=== PATIENT | male | born 1950 | race Caucasian/White ===

== ENCOUNTER 2020-01-04 09:08 | Day surgery (SDC) | payer MEDICARE ==
[~2020-01-04] VITALS: Ht 182.9 cm; Wt 102.4 kg
[~2020-01-04 09:08] MED LIST: ASPI81CH PO; ATOR20 PO; ERGO400 PO; METF500C PO; SITA100T2 PO; VITAMIN B125000 MC1 PO
--- NOTE | 2020-01-04 18:22 | NUR ---
POST OP: REPORT RECEIVED FROM NICKO, CHERRY DIPPER. PT TO ROOM AT ABOUT 1600. UPON ASSESSMENT PT IS A/O. DENIES PAIN, VSS. PT REPORTS NUMBNESS FROM WAIST DOWN, PT HAD SPINAL ANESTHESIA. UNABLE TO WIGGLE TOES, PULSES +2 AND CAP REFILL WNL. SURGICAL SITE WNL. ICE IN PLACE. PT ABLE TO TAKE IN PO, NO N/V. WILL CTM AND REPORT TO DONTRELL RN.
--- NOTE | 2020-01-04 22:30 | NUR ---
PT ATTEMPTED TO VOID IN THE BATHROOM IN THE URNAL JUST NOW. NO URINE OUTPUT YET. ENCOURAGED MORE PO FLUIDS AND HE HAS IV FLUIDS RUNNING. PT AMBULATED WELL TO THE BATHROOM AND BACK TO BED. HE WAS ABLE TO [employer] THE ROOM FOR A FEW MINUTES WITH NO ISSUES.
--- NOTE | 2020-01-05 03:24 | NUR ---
SHIFT SUMMARY: POD 1 RIGHT TOTAL KNEE PT IS ALERT AND ORIENTED X4 WHILE AWAKE. HE HAS BEEN TRYING TO SLEEP DURING THE SHIFT BUT IS EASILY AROUSABLE. VITAL SIGNS ARE WNL AND IS ON RA. PAIN IS MANAGED WITH TWO ИРИНА, TORADOL, AND TYLENOL. HE HAS BEEN AMBULATING WELL TO THE BATHROOM AND DOWN THE HALLS. HE IS A SBA WITH AMBULATION. PT WAS ON A SPINAL EPIDURAL FOR SURGERY BUT DENIES NUMBNESS OR TINGLING NOW. HE IS ON FLUIDS AND IS RECIEVING ABX. HE TOLERATES PO INTAKE. ENCOURAGING PO FLUID INTAKE TO INCREASE URINE OUTPUT. HE CALLS APPROPRIATELY AND CALL LIGHT IS WITHIN REACH. THE PLAN IS TO WORK WITH PT/OT TODAY AND MANAGE PAIN.
[2020-01-05 05:14] LABS: BASOPHILS ABSOLUTE AUTO 0.02 K/mm3 (0.00-0.23); BASOPHILS PERCENT AUTO 0 % (0-2); EOSINOPHILS PERCENT AUTO 0 % (0-6); Hematocrit 32.9 % (37.0-53.0); Hemoglobin 11.1 g/dL (13.5-17.5); IMMATURE GRAN ABSOLUTE AUTO 0.16 K/mm3 (0.00-0.10); IMMATURE GRAN PERCENT AUTO 1 % (0-1); LYMPHOCYTES ABSOLUTE AUTO 1.25 K/mm3 (0.84-5.20); LYMPHOCYTES PERCENT AUTO 8 % (21-46); MONOCYTES ABSOLUTE AUTO 1.29 K/mm3 (0.16-1.47); MONOCYTES PERCENT AUTO 8 % (4-13); Mean Corpuscular HGB 31.7 pg (26.0-34.0); Mean Corpuscular HGB Conc 33.7 g/dL (31.5-36.5); Mean Corpuscular Volume 94 fL (80-100); Mean Platelet Volume 10.9 fL (9.1-12.4); NEUTROPHILS ABSOLUTE AUTO 13.58 K/mm3 (1.96-9.15); NEUTROPHILS PERCENT AUTO 83 % (41-73); Platelet Count 230 K/mm3 (150-400); RDW Coefficient Variation 13.4 % (11.7-14.2); RDW Standard Deviation 45.9 fL (35.1-46.3)
[2020-01-05 05:39] LABS: Anion Gap 6 mmol/L (6-16); Blood Urea Nitrogen 18 mg/dL (8-24); Bun/Creatinine Ratio 15.7 (12.0-20.0); CO2, Blood 27 mmol/L (21-32); Calcium, Blood 8.6 mg/dL (8.5-10.1); Chloride, Blood 104 mmol/L (98-108); Creatinine, Blood 1.15 mg/dL (0.60-1.20); Glomerular Filtration Rate >60 (60-); Glucose, Blood 189 mg/dL (70-99); Potassium, Blood 5.1 mmol/L (3.5-5.5); Sodium, Blood 137 mmol/L (136-145)
[2020-01-05] MEDS ORDERED: Percocet 5-3251 EACH PO (09:44)
--- NOTE | 2020-01-05 12:15 | NUR ---
DISCHARGE CLEARED THERAPY. PAIN WELL MANAGED. EATING, DRINKING WELL. VOIDING AND PT REPORTS FEELING NO CONTINUED URGE TO VOID HE WAS EARLIER. MD AWARE & OK W/ DC. SCRIPTS, POLAR PACK, & DRSGS SENT.
== END 2020-01-05 12:20 | disposition home or self-care (01) ==
LOC: ORSCMMR 09:08 → ORD 11:00 → ORSCMMR 11:00 → ORD 12:15 → SURS 16:28 → ORSCMMR 01-05 12:20
PROVIDERS: Orthopaedic Surgery
PROC: 0SRC06A Replacement of Right Knee Joint with Oxidized Zirconium on Polyethylene Synthetic Substitute, Uncemented, Open Approach (ICD-10-PCS; principal; 2020-01-04 11:00)
PROC: 8E0YXBZ Computer Assisted Procedure of Lower Extremity (ICD-10-PCS; principal; 2020-01-04 11:00)
DX: M17.11 Unilateral primary osteoarthritis, right knee (principal); E11.9 Type 2 diabetes mellitus without complications; E78.00 Pure hypercholesterolemia, unspecified; Z79.82 Long term (current) use of aspirin; Z79.84 Long term (current) use of oral hypoglycemic drugs; Z79.899 Other long term (current) drug therapy
CPT/HCPCS: 36415; 73560-RT; 80048; 82947; 85025; 88300; 97116; 97161; 97530; A9270; A9270-GY; C1776; J0171; J0690; J0735; J1100; J1885; J2250; J2405; J2704; J2795; J3010; J7120

== ENCOUNTER 2020-02-22 08:17 | Day surgery (SDC) | payer MEDICARE ==
[~2020-02-22] VITALS: Ht 182.9 cm; Wt 96.1 kg
[~2020-02-22 08:17] MED LIST changes: +Percocet 5-3251 EACH PO
--- NOTE | 2020-02-22 11:25 | NUR ---
02/22/20 1125 Ivan Menendez FIELD WITH POSSIBLE CONTAMINATION PRIOR TO PT IN ROOM. ROBOT NOT USED FOR CASE DUE TO NOT HAVING THE CORRECT SIDE PROGRAMMED IN ROBOT
--- NOTE | 2020-02-22 13:47 | NUR ---
pt arrived to room on own bed, a/o x 4, pleasant/cooperative, [place], denies pain r/t spinal anesthesia, wiggles toes and lower legs, L3 touch sensation. post op vs commenced and stable. pt provided with snack, room orientation, phone to call daughter. good capillary refill, aquacell and andrés wrap c/d/i, no shadowing, BRIDGER/PAS/CRYO in place
--- NOTE | 2020-02-22 16:10 | NUR ---
pts daughters visiting
--- NOTE | 2020-02-22 18:52 | NUR ---
SHIFT SUMMARY: POST OP VS COMPLETE AND STABLE, PT TOLERATING PO INTAKE, HAS VOIDED, FULL SENSATION AND MOVEMENT TO L KNEE, NO PHYSICAL THERAPY TODAY, PT HAS HAD VISITORS THIS AFTERNOON. OPERATIVE KNEE DRESSING C/D/I, CRYO IN PLACE, BRIDGER DAWSON AND RONALDO ON.
--- NOTE | 2020-02-22 23:15 | NUR ---
PATIENT IS HAVING PAIN THAT IS NOT CONTROLLED WITH PO MARCOTICS. PATIENT REQUIRED IV DILAUDID 0.5MG, HE STATED THAT IT ONLY HELPED A LITTLE. HE WAS HOWEVER ABLE TO WALK APPROXIMATELY 50 FEET SLOWLY WITH FWW, GAIT BELT AND SBA. POLAR PACK IS ON. PATIENT IS NOW SLEEPING. CALL LIGHT IN REACH.
[2020-02-23 04:37] LABS: BASOPHILS ABSOLUTE AUTO 0.03 K/mm3 (0.00-0.23); BASOPHILS PERCENT AUTO 0 % (0-2); EOSINOPHILS PERCENT AUTO 1 % (0-6); Hematocrit 33.8 % (37.0-53.0); Hemoglobin 10.9 g/dL (13.5-17.5); IMMATURE GRAN ABSOLUTE AUTO 0.03 K/mm3 (0.00-0.10); IMMATURE GRAN PERCENT AUTO 0 % (0-1); LYMPHOCYTES ABSOLUTE AUTO 1.28 K/mm3 (0.84-5.20); LYMPHOCYTES PERCENT AUTO 15 % (21-46); MONOCYTES ABSOLUTE AUTO 0.73 K/mm3 (0.16-1.47); MONOCYTES PERCENT AUTO 9 % (4-13); Mean Corpuscular HGB 30.8 pg (26.0-34.0); Mean Corpuscular HGB Conc 32.2 g/dL (31.5-36.5); Mean Corpuscular Volume 96 fL (80-100); Mean Platelet Volume 10.4 fL (9.1-12.4); NEUTROPHILS ABSOLUTE AUTO 6.31 K/mm3 (1.96-9.15); NEUTROPHILS PERCENT AUTO 74 % (41-73); Platelet Count 233 K/mm3 (150-400); RDW Coefficient Variation 13.3 % (11.7-14.2); RDW Standard Deviation 46.9 fL (35.1-46.3); Red Blood Cell Count 3.54 M/mm3 (4.30-5.90); White Blood Cell Count 8.48 K/mm3 (4.00-11.30)
[2020-02-23 04:55] LABS: Anion Gap 5 mmol/L (6-16); Blood Urea Nitrogen 17 mg/dL (8-24); Bun/Creatinine Ratio 15.9 (12.0-20.0); CO2, Blood 29 mmol/L (21-32); Calcium, Blood 8.5 mg/dL (8.5-10.1); Chloride, Blood 107 mmol/L (98-108); Creatinine, Blood 1.07 mg/dL (0.60-1.20); Glomerular Filtration Rate >60 (60-); Glucose, Blood 142 mg/dL (70-99); Potassium, Blood 4.2 mmol/L (3.5-5.5); Sodium, Blood 141 mmol/L (136-145)
--- NOTE | 2020-02-23 05:49 | NUR ---
PATIENT HAS SLEPT BETWEEN CARE AND TREATMENTS, WAKES EASILY TO VERBAL STIM. LT KNEE PAIN HAS BEEN CONTROLLED WELL IN THE PAST 6-7 HOURS WITH IV AND PO MEDICATIONS. POLAR PACK TO LT KNEE. HE HAS BEEN ON SEVERAL WALKS EACH OVER 100 FEET. NO ACUTE CHANGES. CALL LIGHT IN REACH.
--- NOTE | 2020-02-23 11:35 | NUR ---
Upon receiving an admit referral for spiritual care, I visit patient. When asked if I could do anything for patient, patient said, "No." I conducted more of a social visit after that. Patient talks about his support system which consists of his 2 daughters (one of whom works at [employer]), and about his previous knee surgery 7wks ago. Patient talks about his plan to recover. I provide companionship and therapeutic listening and normalize his experience. Patient responds well and voices appreciation for the visit. I will continue to remain available to patient and family.
--- NOTE | 2020-02-23 12:18 | NUR ---
[address] RESENDIZ HERE TO SEE PATIENT. DISCUSSED WITH DR RESENDIZ PATIENTS INABILITY TO VOID AND I/O STATUS
--- NOTE | 2020-02-23 15:50 | NUR ---
1544 DISCHARGED TO HOME WITH DAUGHTER, ALEXSANDRA. PATIENT PAIN CONTROLLED WITH PO MEDS. PT VINITA PO FOOD AND FLUIDS. VOIDING CK YELLOW URINE. PT VERBALIZES UNDERSTANDING OF DISCHARGE INSTRUCTIONS
== END 2020-02-23 15:50 | disposition home or self-care (01) ==
LOC: ORSCMMR 08:17 → ORD 09:45 → SURS 13:34 → ORSCMMR 02-23 15:50
PROVIDERS: Orthopaedic Surgery
PROC: 0SRD0JA Replacement of Left Knee Joint with Synthetic Substitute, Uncemented, Open Approach (ICD-10-PCS; principal; 2020-02-22 09:45)
DX: M17.12 Unilateral primary osteoarthritis, left knee (principal); I10 Essential (primary) hypertension; E11.9 Type 2 diabetes mellitus without complications; Z79.84 Long term (current) use of oral hypoglycemic drugs; Z79.899 Other long term (current) drug therapy
CPT/HCPCS: 36415; 73560-LT; 80048; 82947; 85025; 97110; 97116; 97161; 97530; A9270; A9270-GY; C1776; J0171; J0690; J0735; J1170; J1815; J1885; J2250; J2405; J2704; J2795; J3010; J7120